=== PATIENT | female | born 1950 | race Caucasian/White ===

== ENCOUNTER → 2020-09-02 | Outpatient (CLI) | payer MEDICARE, OTHER | LOC: KOH-I 09:38 | DX: M51.27 Other intervertebral disc displacement, lumbosacral region (principal) | CPT/HCPCS: 72148 ==

== ENCOUNTER → 2020-09-29 | Outpatient (CLI) | payer MEDICARE, OTHER | LOC: US 15:30 | DX: N18.9 Chronic kidney disease, unspecified (principal) ==

== ENCOUNTER → 2021-01-25 | Outpatient (CLI) | payer MEDICARE, OTHER | LOC: LAB 08:59 | PROVIDERS: Internal Medicine Nephrology | DX: N18.9 Chronic kidney disease, unspecified (principal) | CPT/HCPCS: 36415; 80053; 81001; 82043; 82570; 84156 ==

== ENCOUNTER → 2021-02-14 | Outpatient (CLI) | payer MEDICARE, OTHER | LOC: KOH-I 12:28 | DX: N18.9 Chronic kidney disease, unspecified (principal); N13.30 Unspecified hydronephrosis; R16.1 Splenomegaly, not elsewhere classified | CPT/HCPCS: 76775 ==

== ENCOUNTER 2021-10-08 18:43 | Emergency (ER) | payer MEDICARE, OTHER | END 2021-10-08 20:16 | disposition left against medical advice (07) | LOC: ER1 18:43 | DX: R07.81 Pleurodynia (principal); W19.XXXA Unspecified fall, initial encounter | CPT/HCPCS: 99283 ==

== ENCOUNTER 2021-10-11 05:24 | Emergency (ER) | payer MEDICARE, OTHER ==
[2021-10-11 06:35] LABS: HEMOGLOBIN 13.3 gm/dl (12.3-15.3); RED BLOOD COUNT 4.45 M/UL (4.00-5.10); WHITE BLOOD COUNT 2.6 K/UL (4.5-11.0)
[2021-10-11 06:55] LABS: BUN/CREATININE RATIO 15 (0-10)
== END 2021-10-11 09:09 | disposition home or self-care (01) ==
LOC: ER1 05:24
PROVIDERS: Physician Assistant
DX: S20.219A Contusion of unspecified front wall of thorax, initial encounter (principal); S80.12XA Contusion of left lower leg, initial encounter; D72.819 Decreased white blood cell count, unspecified; R91.1 Solitary pulmonary nodule; W01.10XA Fall on same level from slipping, tripping and stumbling with subsequent striking against unspecified object, initial encounter; Y92.009 Unspecified place in unspecified non-institutional (private) residence as the place of occurrence of the external cause; Z20.822 Contact with and (suspected) exposure to COVID-19
CPT/HCPCS: 0240U; 71045; 80053; 82550; 82553; 84484; 85025; 85379; 93005; 99284; Q9967